=== PATIENT | female | born 1950 | race Caucasian/White ===

== ENCOUNTER 2025-06-22 09:12 | Emergency (ER) | payer MEDICARE, SELFPAY ==
[2025-06-22 09:30] VITALS: BP 148/73; PULSE 102; RESP 20; TEMP 36.6; O2SAT 96
--- NOTE | 2025-06-22 09:59 | ED_ITS ---
HPI - General Adult General Chief complaint: Unspecified Stated complaint: High B/P, Diabetic Problems History of Present Illness HPI narrative: 74 yo F presents with daughter requesting blood pressure and blood sugar be checked. Pt states she was feeling anxious and shaky last night before bed. Has had alot of stress at home. A lot of disagreement with her family right now regarding politics. Pt states she woke up feeling better this AM. NO CP or SOB. All systems reviewed and negative except as noted above. Related Data Home Medications ?Medication ?Instructions ?Recorded ?Confirmed ?Last Taken ?Type furosemide 20 mg tablet mg 06/22/25 Unknown History Allergies Allergy/AdvReac Type Severity Reaction Status Date / Time No Known Allergies Allergy Verified 06/22/25 09:45 [facility] Comments At time of signature, agree with nursing past medical, surgical, social and family history. There is no relevant family history pertinent to the presenting complaint. Exam Narrative: GENERAL: This is a well-nourished, well-developed patient, in no apparent distress. HEAD: normocephalic, atraumatic. EYES: PERRL. Sclera clear/white. Vision is grossly intact. EARS: External ears normal NOSE: External nose normal NECK: Neck supple, non-tender without lymphadenopathy, masses or thyromegaly. CARDIOVASCULAR: Regular rate and rhythm without murmurs, gallops, or rubs. RESPIRATORY: Clear to auscultation. Breath sounds equal bilaterally. No wheezes, rales, or rhonchi. SKIN: warm, Dry, intact with no suspicious lesions or rash, good texture and turgor. NEURO: awake, alert, and oriented to person, place and time. There were no obvious focal neurologic abnormalities. EXTREMITIES: No joint tenderness, effusion, or edema noted. Course Course Level of Care: Express Care Visit Vital Signs Vital signs: Vital Signs Temperature 36.6 C 06/22/25 09:30 Pulse Rate 102 H 06/22/25 09:30 Respiratory Rate 20 06/22/25 09:30 Blood Pressure 148/73 H 06/22/25 09:30 Pulse Oximetry 96 06/22/25 09:30 Oxygen Delivery Room Air 06/22/25 09:30 Temperature 36.6 C 06/22/25 09:30 Pulse Rate 102 H 06/22/25 09:30 Respiratory Rate 20 06/22/25 09:30 Blood Pressure 148/73 H 06/22/25 09:30 Pulse Oximetry 96 06/22/25 09:30 Oxygen Delivery Room Air 06/22/25 09:30 reviewed Medical Decision Making MDM Narrative Medical decision making narrative: blood sugar 112. BP 148/73. Pt states this is normal for her. Feeling better. Recommend follow-up with her primary care physician regarding stress and anxiety at home. Vital Signs Vital Signs: Vital Signs Temperature 36.6 C 06/22/25 09:30 Pulse Rate 102 H 06/22/25 09:30 Respiratory Rate 20 06/22/25 09:30 Blood Pressure 148/73 H 06/22/25 09:30 Pulse Oximetry 96 06/22/25 09:30 Oxygen Delivery Room Air 06/22/25 09:30 Temperature 36.6 C 06/22/25 09:30 Pulse Rate 102 H 06/22/25 09:30 Respiratory Rate 20 06/22/25 09:30 Blood Pressure 148/73 H 06/22/25 09:30 Pulse Oximetry 96 06/22/25 09:30 Oxygen Delivery Room Air 06/22/25 09:30 Lab Data Labs: Lab Results 06/22/25 Range/Units 09:40 POC Capillary Glucose 112 H (65-105) mg/dl Discharge Plan Discharge Clinical Impression: Blood pressure check, Stress Patient Disposition: Home Condition: Stable Instructions: Stress (ED) Additional Instructions: Your blood pressure was 148/73. Your blood sugar was 112. See your doctor as needed. Patient Language: Icelandic Prescriptions: No Action furosemide 20 mg tablet Follow-up/Referrals: Renan,PRIYANK Hays [Primary Care Provider, Unknown] Time of Disposition: :
== END 2025-06-22 10:13 | disposition home or self-care (01) ==
PROVIDERS: Emergency Provider Nurse Practitioner Family; PCP Family Medicine
DX: F43.9 Reaction to severe stress, unspecified (principal); Z79.899 Other long term (current) drug therapy
CPT/HCPCS: 82948; 99212; G0463